=== PATIENT | female | born 1950 | race Caucasian/White ===

== ENCOUNTER → 2025-07-29 14:32 | Outpatient (REF) | payer OTHER, SELFPAY | LOC: RAD 14:32 | PROVIDERS: ATTENDING PHYSICIAN Student in an Organized Health Care Education/Training Program; FAMILY PHYSICIAN Physician Assistant | DX: M25.572 Pain in left ankle and joints of left foot (principal) | CPT/HCPCS: 73700 ==

== ENCOUNTER 2025-09-09 06:17 | Day surgery (SDC) | payer OTHER, SELFPAY ==
--- NOTE | 2025-08-21 13:09 | CM ---
Cm spoke with patient at length regarding placement options. Patient has a history of placement at [facility]. CM explained that Acute Rehab may not be the correct level of care for patient. CM advised that patient will most likely qualify for SNF and to
consider SNF's in the area. CM further explained that patient will be evaluate by physical therapy and that will assist with placement in the correct level of care.
[2025-08-26 11:23] LABS: Hematocrit 41.7 % (37.0-47.0); Hemoglobin 13.8 g/dL (12.0-16.0); Mean Corp Hgb Conc. 33.1 g/dL (33.0-37.0); Mean Corpuscular Volume 86.0 fL (81.0-99.0); Nucleated Red Blood Cells % 0 %; Platelet Count 230 10^3/uL (130-400); Red Cell Dist. Width 13.3 % (11.5-14.5)
[2025-08-26 11:40] LABS: Blood Urea Nitrogen 19 mg/dl (7-17); Calcium 9.8 mg/dl (8.4-10.2); Carbon Dioxide 29 mmol/L (22-30); Chloride 102 mmol/L (98-107); Glucose 93 mg/dl (70-99); Potassium 4.1 mmol/L (3.5-5.1); Sodium 141 mmol/L (135-145); eGFR > 60.00
[2025-08-26 14:08] VITALS: BMI 32.1
[2025-09-09] VITALS (14 sets, daily range): BP systolic 102–137; BP diastolic 50–71; PULSE 84; O2SAT 97; BMI 32.1
[2025-09-09] MEDS: NORMOSOL-R/PLASMALYTE-A 1000 IV ×2 (07:57→14:29)
[2025-09-09] MEDS: CELEBREX 200 MG PO (07:57)
[2025-09-09] MEDS: TYLENOL 1000 MG PO (07:57)
--- NOTE | 2025-09-09 11:41 | W.PN.UPDATE ---
Update Note
Progress Note Update
75F s/p LLE TAR, medial malleolus pinning, gastroc recession
- would appreciate admission to hospitalist service
- strict NWB LLE
- Dressings c/d/i
- postop analgesia
- 24 hrs ancef 2g surgical ppx
- start DVT ppx tomorrow
- elevate LLE 2-3 pillows
- will reassess on AM rounds
[2025-09-09] MEDS: DILAUDID 0.5 MG IV ×3 (12:14→13:04)
--- NOTE | 2025-09-09 13:03 | HPS.HSE ---
Addendum entered and electronically signed by Jen Hirsch MD 09/09/25 14:38:
Attending�addendum:
I saw and evaluated the patient. I reviewed the resident�s note and agree with findings and plan as documented in the resident�s note.�
Patient is a pleasant 75 years old with history of hypertension, hyperlipidemia, hypothyroidism and anxiety, came to [facility] for elective LLE TAR, medial malleolus pinning, gastroc recession.
Podiatry recommending admission under hospitalist.
Patient was seen in the PACU, not fully oriented secondary to anesthesia, denies any chest pain or shortness of breath, no abdominal pain, no nausea, no vomiting, no diarrhea or constipation.
Physical�exam:
GENERAL : Patient is awake, but not fully oriented
HEENT: Nonicteric sclerae, PERRLA, EOMI. Oropharynx clear. Moist mucous membranes. Conjunctivae appear well perfused.
CHEST: Chest wall is nontender.
HEART: Regular rate and rhythm without murmurs.
LUNGS: Clear to auscultation bilaterally.
ABDOMEN: Soft, positive bowel sounds, nontender, no organomegaly.
RECTAL: Deferred.
MUSCLES/EXTREMITIES: Left lower extremity cast
NEUROLOGIC: Cranial nerves II-XII intact without motor/sensory deficit.
�
Assessment/plan:
Status post LLE TAR, medial malleolus pinning, gastroc recession
PT/OT consult.
Strict nonweightbearing left lower extremity
Pain control
History�of�hypertension
Continue home meds
History of hyperlipidemia
Continue�statin
History of hypothyroidism
Continue�levothyroxine
Abnormal labs
�
CODE STATUS:�Full�code
DVT�prophylaxis:�Lovenox once cleared by podiatry
Diet:�Regular�diet
Total�time�spent�on�today�s�encounter�was�75�minutes�which�included�time�spent�in�counseling�the�patient/family�regarding�diagnosis�and�treatment�plan�as�listed�above,�goals�of�care,�and�symptom�management.�Case�was�discussed�with�nursing�staff,�spec
ialists,�and�care�coordinators/case�management.�All�labs�and�imaging�personally�reviewed�by�me.�Remainder�the�time�spent�in�detailed�review�of�previous�records,�lab�data,�imaging,�and�other�medical�provider�documentation.
�
CODE STATUS: Full code
DVT prophylaxis: Lovenox
Diet: Regular diet
Family communication:
Disposition:
�
Total time spent on today�s encounter was 51 minutes which included time spent in counseling the patient/family regarding diagnosis and treatment plan as listed above, goals of care, and symptom management. Case was discussed with nursing staff,
specialists, and care coordinators/case management. All labs and imaging personally reviewed by me. Remainder the time spent in detailed review of previous records, lab data, imaging, and other medical provider documentation.
Original Note:
Family Physician
-
Family Physician: RAMU Fabian
Chief Complaint
-
LLE Procedure
History of Present Illness
Jyothi Bernard is a 75F PMHx hypothyroidism, hypertension, hyperlipidemia, rheumatoid arthritis, AMIRAH, PAD, ankle osteoarthritis who is POD#0 for LLE TAR, medial mal pinning, gastrocnemius recession.
Medical History
Past Medical History
Past Medical History: Reports Other (hypothyroidism, hypertension, hyperlipidemia, rheumatoid arthritis, AMIRAH, PAD, ankle osteoarthritis)
Past Surgical History: Reports Other (Orthopedic surgery, C-sections X3, appendectomy, hernia, ovarian, cataract)
Social History
Unable to obtain full social history at this time due to: Other (Postanesthesia)
Family History
Family History: Not pertinent
Allergies / Home Medications
Allergies reflects when Allergies were last updated in [facility].
Home Medications with original date entered in [facility]
Allergy/Medication List:
MED
Atorvastatin 10 mg nightly
Hydrochlorothiazide 25 mg every morning
Latanoprost 0.005%
Levothyroxine 50 mcg every morning
Trazodone 50 mg nightly
Review of Systems
-
Unable to obtain full review of systems at this time due to: Other (post-anaesthesia)
Physical Exam
Vital Signs
Vital Signs
Temp Pulse Resp BP Pulse Ox
97.8 F 85 13 117/57 95
09/09/25 12:30 09/09/25 13:00 09/09/25 13:00 09/09/25 13:00 09/09/25 13:00
Physical Exam
General: No Apparent Distress
HEENT: NormoCephalic, Anicteric and Moist mucous membranes
Respiratory: Clear and Non Labored Respirations
Cardiac: S1/S2 and Regular Rhythm
GI: Soft
Musculoskeletal: Other (LLE in boot)
Skin: Warm
Neuro: Sedated (post-anaesthesia)
Laboratory Results
-
08/26/25 08:58
08/26/25 08:58
Impression/Plan
-
Jyothi Bernard is a 75F PMHx hypothyroidism, hypertension, hyperlipidemia, rheumatoid arthritis, AMIRAH, PAD, ankle osteoarthritis who is POD#0 for LLE TAR, medial mal pinning, gastrocnemius recession.
1. Post Podiatric Procedure
- LLE TAR, medial mal pinning, gastrocnemius recession
- Strict NWB of LLE
- Post-op analgesia per podiatry
- 24 hours of 2g Ancef
- Start DVT ppx tomorrow
- LLE elevation 2-3 pillows, ice application
- PT/OT as consuelo; expected to go to rehab
2. Hypothyroidism
- Continue Levothyroxine
3. HTN
- Continue HCTZ
4. HLD
- Continue statin
5. MECHE
- Continue Trazadone
- Hold PRN Benzo in the postprocedural period
Code Status: TO BE RECONCILED (patient sedated at time of interview)
DVT: hold for 24 hours; start Enoxaparin 09/10
Dispo Planning: PT/OT/Acute Rehab?
--- NOTE | 2025-09-09 14:00 | PTCARENOTE ---
Pt received from the PACU via stretcher. Transport was w/o incident. Pt is drowsy, and easily arousable. Vss, Pt is afebrile. HRR, lungs are clear, resp. easy, pulse ox 97%2L via nc. Pt's left lower leg with half cast, dry dressings,web roll and jakob
wrap. Pt able to wiggle toes. Toes are warm, Pt reports full sensation, popliteal palpable left leg. Unable to reach DP pulse left leg d/t dressing. Pt instructed on plan of care. Pt verbalized understanding of instructions, call tolliver is within
reach.
[2025-09-09] MEDS: ROXICODONE 5 MG PO ×2 (16:56→21:29)
[2025-09-09] MEDS: NEURONTIN 300 MG PO ×2 (17:07→22:25)
[2025-09-09] MEDS: LIPITOR 10 MG PO (17:07)
[2025-09-09] MEDS: ANCEF 10 IV (17:28)
[2025-09-09] MEDS: ZOFRAN 4 MG IV (19:39)
[2025-09-09] MEDS: XALATAN OPHTHALMIC SOLUTION 1 DROP OPHTH (21:28)
[2025-09-09] MEDS: DESYREL 50 MG PO (22:25)
[2025-09-10] MEDS: ANCEF 10 IV ×2 (00:31→08:34)
[2025-09-10 03:00] VITALS: BP 124/57
[2025-09-10] MEDS: SYNTHROID 50 MCG PO (05:15)
[2025-09-10 07:30] VITALS: BP 133/63
[2025-09-10 07:56] LABS: Hematocrit 37.4 % (37.0-47.0); Hemoglobin 12.5 g/dL (12.0-16.0); Mean Corp Hgb Conc. 33.4 g/dL (33.0-37.0); Mean Corpuscular Volume 83.9 fL (81.0-99.0); Platelet Count 205 10^3/uL (130-400); Red Cell Dist. Width 13.1 % (11.5-14.5)
--- NOTE | 2025-09-10 08:21 | W.PN.HOSP.TC ---
Addendum entered and electronically signed by Jen Hirsch MD 09/10/25 11:12:
Attending�addendum:
I saw and evaluated the patient. I reviewed the resident�s note and agree with findings and plan as documented in the resident�s note.�
Patient seen and examined at bedside, family at bedside denies any chest pain or shortness of breath, no abdominal pain, no nausea, no vomiting, no diarrhea or constipation.
Physical�exam:
GENERAL : Patient is awake, but not fully oriented
HEENT: Nonicteric sclerae, PERRLA, EOMI. Oropharynx clear. Moist mucous membranes. Conjunctivae appear well perfused.
CHEST: Chest wall is nontender.
HEART: Regular rate and rhythm without murmurs.
LUNGS: Clear to auscultation bilaterally.
ABDOMEN: Soft, positive bowel sounds, nontender, no organomegaly.
RECTAL: Deferred.
MUSCLES/EXTREMITIES: Left lower extremity cast
NEUROLOGIC: Cranial nerves II-XII intact without motor/sensory deficit.
�
Assessment/plan:
Status post LLE TAR, medial malleolus pinning, gastroc recession
PT/OT consult.
Strict nonweightbearing left lower extremity
Pain control
History�of�hypertension
Continue home meds
History of hyperlipidemia
Continue�statin
History of hypothyroidism
Continue�levothyroxine
Abnormal labs
�
CODE STATUS:�Full�code
DVT�prophylaxis:�Lovenox.
Diet:�Regular�diet
Family communication: Discussed with family at bedside.
Total�time�spent�on�today�s�encounter�was�55�minutes�which�included�time�spent�in�counseling�the�patient/family�regarding�diagnosis�and�treatment�plan�as�listed�above,�goals�of�care,�and�symptom�management.�Case�was�discussed�with�nursing�staff,�spec
ialists,�and�care�coordinators/case�management.�All�labs�and�imaging�personally�reviewed�by�me.�Remainder�the�time�spent�in�detailed�review�of�previous�records,�lab�data,�imaging,�and�other�medical�provider�documentation.
Original Note:
Today's Communication/Plan
-
Patient has bed at [facility]; pending podiatry sign off.
DVT PPx to start today if patient staying.
Continue PT/OT.
Assessment / Plan
Assessment / Plan
Jyothi Bernard is a 75F PMHx hypothyroidism, hypertension, hyperlipidemia, rheumatoid arthritis, AMIRAH, PAD, ankle osteoarthritis who is POD#1 for LLE TAR, medial mal pinning, gastrocnemius recession.
1. Post Podiatric Procedure
- LLE TAR, medial mal pinning, gastrocnemius recession
- Strict NWB of LLE
- Post-op analgesia per podiatry
- 24 hours of 2g Ancef - completed
- Start DVT ppx today
- LLE elevation 2-3 pillows, ice application
- PT/OT as consuelo; suggesting rehab
2. Hypothyroidism
- Continue Levothyroxine
3. HTN
- Continue HCTZ
4. HLD
- Continue statin
5. MECHE
- Continue Trazadone
- Hold PRN Benzo in the postprocedural period
6. Leukocytosis
- Likely reactive, continue to monitor
Code Status: FULL
DVT: hold for 24 hours; start Enoxaparin 09/10
Dispo Planning: Discharge to Rehab pending podiatry sign off
Anticipated Discharge: Today
Subjective/Interval History
-
Date of Service: September 10, 2025
Patient seen and examined while sitting up comfortably in chair and chatting with family members.
Daughter and are at the bedside.
Endorses pain is manageable with current pain regimen.
Has been working with and tolerating PT.
Otherwise denies any acute complaints.
Objective Data
-
Labs:
Laboratory Results
09/10/25
06:59
WBC 17.0 H
Hgb 12.5
Hct 37.4
Plt Count 205
Sodium Pending
Potassium Pending
Chloride Pending
Carbon Dioxide Pending
BUN Pending
Creatinine Pending
Glucose Pending
Calcium Pending
Vital Signs:
Vital Signs
Temp Pulse Resp BP Pulse Ox
97.6 F 75 16 124/57 96
09/10/25 03:00 09/10/25 03:00 09/10/25 03:00 09/10/25 03:00 09/10/25 03:00
I&O
09/09/25 09/10/25 09/11/25
06:59 06:59 06:59
Intake Total 860 / 860
Output Total 500 / 500
Balance 360 / 360
Review of Systems
-
History Source: Patient
All other systems: Reviewed and negative
Physical Exam
-
General: Well Developed, Well Nourished and No Apparent Distress
HEENT: Normocephalic and Atraumatic
Respiratory: Clear to Auscultation and Non Labored Respirations; Negative Wheezes, Rales, Rhonchi or Crackles
Cardiac: Regular Rhythm and S1/S2
Musculoskeletal: Other (no edema or calf tenderness of the RLE; LLE dressings are clean dry and intact )
Skin: Warm
Neuro: Awake, Alert and Oriented
Psych: Calm
Data Reviewed
-
Diagnostic Radiology: Image personally visualized and interpreted, Report Reviewed by me and Discussed with Patient
Labs: Labs Reviewed by me and Discussed with Patient
[2025-09-10 08:32] LABS: Blood Urea Nitrogen 20 mg/dl (7-17); Calcium 9.4 mg/dl (8.4-10.2); Carbon Dioxide 30 mmol/L (22-30); Chloride 100 mmol/L (98-107); Estimated Creatinine Clearance 62 ml/min; Glucose 118 mg/dl (70-99); Potassium 3.7 mmol/L (3.5-5.1); Sodium 136 mmol/L (135-145); eGFR > 60.00
[2025-09-10] MEDS: NEURONTIN 300 MG PO ×2 (08:34→16:09)
[2025-09-10] MEDS: ORETIC 25 MG PO (08:34)
[2025-09-10] MEDS: NORMOSOL-R/PLASMALYTE-A IV (08:35)
--- NOTE | 2025-09-10 09:27 | CM ---
CM reviewed medical records. CM met with patient and family in room. Patient expressed interest in SNF at [facility], [facility] or [facility]. CM sent referral via [facility] and is awaiting acceptance.
[2025-09-10] MEDS: ROXICODONE 5 MG PO ×2 (10:19→16:08)
[2025-09-10 11:10] LABS: COVID-19 Antigen Negative (Negative)
[2025-09-10 11:12] VITALS: BP 123/67; PULSE 78
[2025-09-10 11:25] VITALS: BP 122/58
--- NOTE | 2025-09-10 11:27 | CM ---
Addendum entered by Zelda Penaloza RN 09/10/25 12:03:
[facility]
Report
[phone]

Addendum entered by Zelda Penaloza RN 09/10/25 11:48:
IBC Authorization
09/10-09/16
[id number]
Acute Care Authorization
[id number]
09/10-09/12
[address] trip only
Original Note:
Patient has been accepted to [facility]. CM is awaiting authorization and final discharge from Podiatry.
[2025-09-10] MEDS: MOTRIN 600 MG PO (12:27)
[2025-09-10] MEDS: TYLENOL 650 MG PO (12:28)
--- NOTE | 2025-09-10 12:57 | W.PN.UPDATE ---
Update Note
Progress Note Update
75F s/p LLE TAR, medial malleolus pinning, gastroc recession. doing well this AM, no pain, calf soft supple nontender to touch. sensaiton intact to pedal distributions, cft wnl, motor function intact to toes.
- strict NWB LLE
- Dressings c/d/i
- postop analgesia
- 24 hrs ancef 2g surgical ppx
- restart DVT ppx
- elevate LLE 2-3 pillows
- stable for dc to follow up in office.
[2025-09-10 15:45] VITALS: BP 112/56
[2025-09-10] MEDS: ANCEF IV (17:22)
[2025-09-10] MEDS: LOVENOX 40 MG SC (17:37)
[2025-09-10] MEDS: LIPITOR 10 MG PO (17:42)
[2025-09-10 18:35] VITALS: BP 112/83
--- NOTE | 2025-09-11 12:08 | W.DCSUMMARY ---
Addendum entered and electronically signed by Jen Hirsch MD 09/11/25 13:08:
Attending�addendum:
I saw and evaluated the patient. I reviewed the resident�s note and agree with findings and plan as documented in the resident�s note.�
Patient seen and examined at bedside, family at bedside denies any chest pain or shortness of breath, no abdominal pain, no nausea, no vomiting, no diarrhea or constipation.
Physical�exam:
GENERAL : Patient is awake, but not fully oriented
HEENT: Nonicteric sclerae, PERRLA, EOMI. Oropharynx clear. Moist mucous membranes. Conjunctivae appear well perfused.
CHEST: Chest wall is nontender.
HEART: Regular rate and rhythm without murmurs.
LUNGS: Clear to auscultation bilaterally.
ABDOMEN: Soft, positive bowel sounds, nontender, no organomegaly.
RECTAL: Deferred.
MUSCLES/EXTREMITIES: Left lower extremity cast
NEUROLOGIC: Cranial nerves II-XII intact without motor/sensory deficit.
�
Assessment/plan:
Status post LLE TAR, medial malleolus pinning, gastroc recession
PT/OT consult.
Strict nonweightbearing left lower extremity
Pain control
History�of�hypertension
Continue home meds
History of hyperlipidemia
Continue�statin
History of hypothyroidism
Continue�levothyroxine
Abnormal labs
�
CODE STATUS:�Full�code
DVT�prophylaxis:�Lovenox.
Diet:�Regular�diet
Family communication: Discussed with family at bedside.
Position: Discharge to rehab.
Total time spent on today's encounter was 45 minutes which included time spent in counseling the patient/family regarding diagnosis and treatment plan as listed above, goals of care, and symptom management. Case was discussed with nursing staff,
specialists, and care coordinators/case management. All labs and imaging personally reviewed by me. Remainder the time spent in detailed review of previous records, lab data, imaging, and other medical provider documentation.
Original Note:
Documented by User: Pierre Díaz DO, Resident 09/11/25 12:16
Discharge Summary
Discharge Data
Date of Admission: 09/09/25
Date of Discharge: 09/10/25
Total time spent discharging patient (in min): 45
-
Pending Results: No
Hospital Course
Jyothi Bernard is a 75-year-old female with a past medical history of hypertension, hypothyroidism, hyperlipidemia, rheumatoid arthritis, obstructive sleep apnea, peripheral arterial disease, and ankle osteoarthritis who was admitted to [facility] on 09/09/2025 after a podiatric surgical procedure for total ankle replacement (left), medial malleolar pinning, and gastrocnemius recession. She tolerated the procedure well and received postoperative analgesia and physical therapy
assessment.
DISCHARGE RECOMMENDATIONS
Strict nonweightbearing of the left lower extremity
DVT prophylaxis with Lovenox for at least 14 days.
Left lower extremity elevation of 2-3 pillows, ice application as needed.
Discharged to facility with physical therapy rehab program.
Repeat CBC in 1 week.
Discharge Plan
-
Patient Disposition: Senior Living/SNF
Discharge Diagnosis/Procedures: *Left Ankle Total Ankle Replacement
*Medial Malleolus Pinning
*Gastrocnemius Recession
History of Hypertension
History of Hyperlipidemia
History of Hypothyroidism
Condition: Fair
Diet: Regular
Activity: Do not bear weight L leg
Additional Activity: Elevate left lower extremity to 2-3 pillows.
Blood Work: Repeat CBC in 1 week.
Referrals:
Brennan Hickman PA [Family Provider, Family Practice] - in one to two weeks
Prescriptions:
New
gabapentin 300 mg Capsule
300 mg PO TID Qty: 30 0RF
oxycodone 5 mg Tablet
5 mg PO Q4HPRN PRN (Reason: mild pain) Qty: 10 0RF
enoxaparin 40 mg/0.4 mL Syringe
40 mg SC QPM Qty: 4 0RF
Continued
latanoprost 0.005 % Drops
1 drp OPHTHALMIC (EYE) QPM
trazodone 50 mg Tablet
50 mg PO HS
alprazolam [Xanax] 0.5 mg Tablet
0.5 mg PO DAILY PRN (Reason: anxiety)
levothyroxine 50 mcg Tablet
50 mcg PO DAILY
ibuprofen 200 mg Tablet
400 mg PO Q6H PRN (Reason: pain)
atorvastatin 10 MG tablet
10 mg PO QPM
hydrochlorothiazide 25 MG tablet
25 mg PO DAILY
Discharge Orders:
Discharge Patient (As Directed); Ordered 09/10/25
Ordered By: Pierre Díaz
Discharge Date and Time
Discharge Date/Time: 09/10/25 18:45
Print Language: CANADIAN

Documented by User: Jen Hirsch MD 09/11/25 13:07
Discharge Summary
Discharge Data
Date of Admission: 09/09/25
Date of Discharge: 09/10/25
Discharge Plan
-
Patient Disposition: Senior Living/SNF
Discharge Diagnosis/Procedures: *Left Ankle Total Ankle Replacement
*Medial Malleolus Pinning
*Gastrocnemius Recession
History of Hypertension
History of Hyperlipidemia
History of Hypothyroidism
Condition: Fair
Diet: Regular
Activity: Do not bear weight L leg
Additional Activity: Elevate left lower extremity to 2-3 pillows.
Blood Work: Repeat CBC in 1 week.
Referrals:
Brennan Hickman PA [Family Provider, Family Practice] - in one to two weeks
Prescriptions:
New
gabapentin 300 mg Capsule
300 mg PO TID Qty: 30 0RF
oxycodone 5 mg Tablet
5 mg PO Q4HPRN PRN (Reason: mild pain) Qty: 10 0RF
enoxaparin 40 mg/0.4 mL Syringe
40 mg SC QPM Qty: 4 0RF
Continued
latanoprost 0.005 % Drops
1 drp OPHTHALMIC (EYE) QPM
trazodone 50 mg Tablet
50 mg PO HS
alprazolam [Xanax] 0.5 mg Tablet
0.5 mg PO DAILY PRN (Reason: anxiety)
levothyroxine 50 mcg Tablet
50 mcg PO DAILY
ibuprofen 200 mg Tablet
400 mg PO Q6H PRN (Reason: pain)
atorvastatin 10 MG tablet
10 mg PO QPM
hydrochlorothiazide 25 MG tablet
25 mg PO DAILY
Discharge Orders:
Discharge Patient (As Directed); Ordered 09/10/25
Ordered By: Pierre Díaz
Discharge Date and Time
Discharge Date/Time: 09/10/25 18:45
Print Language: CANADIAN
== END 2025-09-10 18:45 ==
LOC: SDS 06:17
PROVIDERS: ATTENDING PHYSICIAN General Practice; CONSULT PHYSICIAN Student in an Organized Health Care Education/Training Program; FAMILY PHYSICIAN Physician Assistant
DX: M19.072 Primary osteoarthritis, left ankle and foot (principal); M21.6X2 Other acquired deformities of left foot
CPT/HCPCS: 27702; 27687; 27745; C1776; 73600; 76000; 80048; 85025; 85027; 87811; 93005; 97162; 97167; 97530